=== PATIENT | female | born 1975 | race American Indian/Alaskan Native ===

== ENCOUNTER 2018-05-14 15:26 | Emergency (ER) | payer MEDICARE ==
--- NOTE | 2018-05-14 16:09 | Emergency Department Report ---
Blank Doc - Documentation Documentation: This is a 43-year-old female that presents with left sided chest pain with some SOB with URI symptoms such as frontal sinus pain, rhinnorrhea, cough and congestion. Stated is worse with palpation. This initial assessment diagnostic orders/clinical plan/treatment(s) is/are s ubject to change based on patient's health status, clinical progression and re- assessment by fellow clinical providers in the ED. Further treatment and workup at subsequent clinical providers discretion. Patient/guardians urged not to elope from ED s their condition may be serious if not clinically assessed and managed. Initial orders include: 1-Patient sent to [facility] for further evaluation and treatment 2- EKG 3- Labs 4- CXR
[2018-05-14 16:39] LABS: Basophils % (Auto) 0.5 % (0.0-1.8); Eosinophils # (Auto) 0.4 K/mm3 (0.0-0.4); Eosinophils % (Auto) 4.6 % (0.0-4.3); Hematocrit 40.2 % (30.3-42.9); Hemoglobin 13.4 gm/dl (10.1-14.3); Lymphocytes # (Auto) 2.6 K/mm3 (1.2-5.4); Lymphocytes % (Auto) 32.3 % (13.4-35.0); Mean Corpuscular HGB Conc 33 % (30-34); Mean Corpuscular Volume 83 fl (79-97); Monocytes # (Auto) 0.6 K/mm3 (0.0-0.8); Monocytes % (Auto) 7.8 % (0.0-7.3); Platelet Count 257 K/mm3 (140-440); Red Blood Count 4.84 M/mm3 (3.65-5.03); Red Cell Distribution Width 13.8 % (13.2-15.2)
[2018-05-14 16:45] LABS: INR 0.9 (0.87-1.13)
[2018-05-14 16:52] LABS: Alanine Aminotransferase 8 units/L (7-56); Albumin 4.2 g/dL (3.9-5); BUN/Creatinine Ratio 15; Blood Urea Nitrogen 9 mg/dL (7-17); Calcium 9.4 mg/dL (8.4-10.2); Hemolysis Index 8
--- NOTE | 2018-05-14 17:22 | XRay Report ---
FINAL REPORT PROCEDURE: Chest. TECHNIQUE: PA and lateral views. HISTORY: Chest pain. COMPARISON: No prior studies are available for comparison. FINDINGS: The heart size is normal. There is mild tortuosity of the thoracic aorta. The lungs are clear and wel l expanded. There are no pleural effusions. The soft tissues and regional skeleton are unremarkable. IMPRESSION: No evidence of acute disease.
[2018-05-14 18:42] VITALS: BP 160/109
--- NOTE | 2018-05-14 19:08 | Emergency Department Report ---
- General Chief Complaint: Chest Pain Stated Complaint: BACK/CHEST/HEAD PAIN Time Seen by Provider: 05/14/18 15:57 Source: patient Mode of arrival: Ambulatory Limitations: No Limitations - History of Present Illness Initial Comments: 43-year-old female presents to ED with URI symptoms 1 week. Patient reports fever, headache, cough, chest and back pain with cough, sinus pressure. Patient also reports history of hypertension, however states is very resistant to take medication for it because she does not like to take pills. MD Complaint: fever, cough, nasal congestion, sinus pain -: week(s) (1) Severity: moderate Quality: sharp, aching Consistency: constant Improves With: nothing Worsens With: nothing Associated Symptoms: fever, chills, headache, nasal congestion - Related Data Previous Rx's Medication Instructions Recorded Last Taken Type Amoxicillin/K Clav Tab [Augmentin 1 each PO Q12HR #20 tablet 05/14/18 Unknown Rx 500 MG TAB] Benzonatate [Tessalon Perles] 100 mg PO Q8HR PRN #20 capsule 05/14/18 Unknown Rx Butalb/Acetamin/Caff 50-325-40 1 tab PO Q6HR PRN #10 tab 05/14/18 Unknown Rx [Fioricet] Fluticasone [Flonase] 1 spray NS QDAY #1 bottle 05/14/18 Unknown Rx hydroCHLOROthiazide [HCTZ] 25 mg PO QDAY #30 tablet 05/14/18 Unknown Rx methOCARBAMOL [Robaxin TAB] 500 mg PO Q8HR PRN #20 tablet 05/14/18 Unknown Rx Allergies Allergy/AdvReac Type Severity Reaction Status Date / Time No Known Allergies Allergy Unverified 05/14/18 16:09 ED Review of Systems ROS: Stated complaint: BACK/CHEST/HEAD PAIN Other details as noted in HPI Comment: All other systems reviewed and negative Constitutional: chills, fever ENT: congestion Respiratory: cough Cardiovascular: chest pain (with cough) Gastrointestinal: denies: nausea, vomiting Musculoskeletal: back pain (with cough) Neurological: headache ED Past Medical Hx - Past Medical History Previous Medical History?: No - Surgical History Past Surgical History?: No - Social History Smoking Status: Never Smoker Substance Use Type: Marijuana - Medications Home Medications: Home Medications Medication Instructions Recorded Confirmed Last Taken Type Amoxicillin/K Clav Tab [Augmentin 1 each PO Q12HR #20 tablet 05/14/18 Unknown Rx 500 MG TAB] Benzonatate [Tessalon Perles] 100 mg PO Q8HR PRN #20 capsule 05/14/18 Unknown Rx Butalb/Acetamin/Caff 50-325-40 1 tab PO Q6HR PRN #10 tab 05/14/18 Unknown Rx [Fioricet] Fluticasone [Flonase] 1 spray NS QDAY #1 bottle 05/14/18 Unknown Rx hydroCHLOROthiazide [HCTZ] 25 mg PO QDAY #30 tablet 05/14/18 Unknown Rx methOCARBAMOL [Robaxin TAB] 500 mg PO Q8HR PRN #20 tablet 05/14/18 Unknown Rx ED Physical Exam - General Limitations: No Limitations General appearance: alert, in no apparent distress - Head Head exam: Present: other (sinus tenderness present) - Eye Eye exam: Present: normal appearance, PERRL, EOMI - ENT ENT exam: Present: mucous membranes moist - Neck Neck exam: Present: normal inspection. Absent: meningismus - Respiratory Respiratory exam: Present: normal lung sounds bilaterally. Absent: respiratory distress - Cardiovascular Cardiovascular Exam: Present: regular rate, normal rhythm - GI/Abdominal GI/Abdominal exam: Present: soft. Absent: distended, tenderness - Extremities Exam Extremities exam: Present: normal inspection - Back Exam Back exam: Present: paraspinal tenderness - Neurological Exam Neurological exam: Present: alert, oriented X3 - Psychiatric Psychiatric exam: Present: normal affect, normal mood - Skin Skin exam: Present: warm, dry, intact, normal color ED Course Vital Signs 05/14/18 05/14/18 05/14/18 16:09 18:42 18:43 Temperature 98.2 F 98.1 F Pulse Rate 66 73 Respiratory 20 18 18 Rate Blood Pressure 141/93 Blood Pressure 160/109 [Left] O2 Sat by Pulse 99 100 100 Oximetry ED Medical Decision Making - Lab Data Result diagrams: 05/14/18 16:16 05/14/18 16:16 - EKG Data -: EKG Interpreted by Me EKG shows normal: sinus rhythm, axis, intervals, QRS complexes, ST-T waves Rate: normal - EKG Data Interpretation: no acute changes - Radiology Data Radiology results: report reviewed, image reviewed - Differential Diagnosis sinusitis, costochondritis, pneumonia Critical care attestation.: If time is entered above; I have spent that time in minutes in the direct care of this critically ill patient, excluding procedure time. ED Disposition Clinical Impression: Upper respiratory infection, Sinusitis, Essential hypertension Disposition: TO HOME OR SELFCARE Is pt being admited?: No Condition: Stable Instructions: Sinusitis (ED), Upper Respiratory Infection (ED), Hypertension (ED) Prescriptions: Amoxicillin/K Clav Tab [Augmentin 500 MG TAB] 1 each PO Q12HR #20 tablet Benzonatate [Tessalon Perles] 100 mg PO Q8HR PRN #20 capsule PRN Reason: Cough Butalb/Acetamin/Caff 50-325-40 [Fioricet] 1 tab PO Q6HR PRN #10 tab PRN Reason: Headache Fluticasone [Flonase] 1 spray NS QDAY #1 bottle hydroCHLOROthiazide [HCTZ] 25 mg PO QDAY #30 tablet methOCARBAMOL [Robaxin TAB] 500 mg PO Q8HR PRN #20 tablet PRN Reason: Muscle Spasm Referrals: TARSHA CHAIDEZ [Primary Care Provider] - 3-5 Days [facility] [Provider Group] - 3-5 Days Time of Disposition: 19:11
== END 2018-05-14 19:39 | disposition home or self-care (01) ==
LOC: ED 15:26
DX: J32.9 Chronic sinusitis, unspecified (principal); J06.9 Acute upper respiratory infection, unspecified; I10 Essential (primary) hypertension; F12.10 Cannabis abuse, uncomplicated
CPT/HCPCS: 36415; 71046; 80053; 84484; 85025; 85379; 85610; 85730; 93005; 93010

== ENCOUNTER 2018-07-07 15:59 | Emergency (ER) | payer MEDICARE ==
--- NOTE | 2018-07-07 16:40 | Emergency Department Report ---
Chief Complaint: Urogenital-Female Stated Complaint: STD CHECK/POSS UTI Time Seen by Provider: 07/07/18 16:38 - HPI History of Present Illness: pt states she has dysuria that began two days ago no vaginal discharge no vaginal lesions, blisters states she is having odor states she is sexually active, states she did not use protection STD-gonorrhea 2006 no PMhx no meds (+) marijuana no ETOH no cigarettes MSE screening note: Focused history and physical exam performed. Due to findings the following was ordered: UA, urine preg, wet prep, G/C ED Disposition for MSE Condition: Stable
[2018-07-07 17:29] LABS: HCG Qualitative,Urine Negative (Negative)
[2018-07-07 17:34] LABS: Bacteria,Urine 2+ /HPF (Negative); Bilirubin,Urine NEG (Negative); Blood,Urine SM (Negative); Color,Urine Amber (Yellow); Mucus,Urine 2+ /HPF
--- NOTE | 2018-07-07 20:48 | Emergency Department Report ---
ED Female HPI - General Chief complaint: Urogenital-Female Stated complaint: STD CHECK/POSS UTI Time Seen by Provider: 07/07/18 16:38 Source: patient Mode of arrival: Ambulatory Limitations: No Limitations - History of Present Illness Initial comments: 43-year-old female sexually active since [facility] department complaining of having pelvic discomfort and irritation during sex and having a slight odor but no vaginal discharge. [place]field has come contour with an STD and/or has urinary tract infection, rule out to be evaluated. States she is his just recently coming in to some issues with her partner, which has increased her suspicion for some outside in the 6 sexual behaviors. Reports no fever, chills, sweats, hematuria, flank pain, nausea, vomiting. MD Complaint: pelvic pain, possible STD Location: suprapubic Radiation: non-radiating Severity: mild Quality: burning Consistency: intermittent Improves with: none Worsens with: intercourse, other (veritable with onset) Are you Now?: No - Related Data Previous Rx's Medication Instructions Recorded Last Taken Type Amoxicillin/K Clav Tab [Augmentin 1 each PO Q12HR #20 tablet 05/14/18 Unknown Rx 500 MG TAB] Benzonatate [Tessalon Perles] 100 mg PO Q8HR PRN #20 capsule 05/14/18 Unknown Rx Butalb/Acetamin/Caff 50-325-40 1 tab PO Q6HR PRN #10 tab 05/14/18 Unknown Rx [Fioricet] Fluticasone [Flonase] 1 spray NS QDAY #1 bottle 05/14/18 Unknown Rx hydroCHLOROthiazide [HCTZ] 25 mg PO QDAY #30 tablet 05/14/18 Unknown Rx methOCARBAMOL [Robaxin TAB] 500 mg PO Q8HR PRN #20 tablet 05/14/18 Unknown Rx Nitrofurantoin Monohyd/M-Cryst 100 mg PO BID #20 capsule 07/07/18 Unknown Rx [Macrobid 100 mg Capsule] Phenazopyridine [Pyridium] 200 mg PO BID PRN #10 tab 07/07/18 Unknown Rx metroNIDAZOLE [Flagyl] 500 mg PO BID #14 tab 07/07/18 Unknown Rx Allergies Allergy/AdvReac Type Severity Reaction Status Date / Time No Known Allergies Allergy Verified 07/07/18 16:04 ED Review of Systems ROS: Stated complaint: STD CHECK/POSS UTI Other details as noted in HPI Constitutional: denies: chills, fever Eyes: denies: eye pain, eye discharge, vision change ENT: denies: ear pain, throat pain Respiratory: denies: cough, shortness of breath, wheezing Cardiovascular: denies: chest pain, palpitations Endocrine: no symptoms reported Gastrointestinal: denies: abdominal pain, nausea, diarrhea Genitourinary: denies: urgency, dysuria, discharge Musculoskeletal: denies: back pain, joint swelling, arthralgia Skin: denies: rash, lesions Neurological: denies: headache, weakness, paresthesias Psychiatric: denies: anxiety, depression Hematological/Lymphatic: denies: easy bleeding, easy bruising ED Past Medical Hx - Past Medical History Previous Medical History?: No - Surgical History Past Surgical History?: No - Social History Smoking Status: Never Smoker Substance Use Type: Marijuana - Medications Home Medications: Home Medications Medication Instructions Recorded Confirmed Last Taken Type Amoxicillin/K Clav Tab [Augmentin 1 each PO Q12HR #20 tablet 05/14/18 Unknown Rx 500 MG TAB] Benzonatate [Tessalon Perles] 100 mg PO Q8HR PRN #20 capsule 05/14/18 Unknown Rx Butalb/Acetamin/Caff 50-325-40 1 tab PO Q6HR PRN #10 tab 05/14/18 Unknown Rx [Fioricet] Fluticasone [Flonase] 1 spray NS QDAY #1 bottle 05/14/18 Unknown Rx hydroCHLOROthiazide [HCTZ] 25 mg PO QDAY #30 tablet 05/14/18 Unknown Rx methOCARBAMOL [Robaxin TAB] 500 mg PO Q8HR PRN #20 tablet 05/14/18 Unknown Rx Nitrofurantoin Monohyd/M-Cryst 100 mg PO BID #20 capsule 07/07/18 Unknown Rx [Macrobid 100 mg Capsule] Phenazopyridine [Pyridium] 200 mg PO BID PRN #10 tab 07/07/18 Unknown Rx metroNIDAZOLE [Flagyl] 500 mg PO BID #14 tab 07/07/18 Unknown Rx ED Physical Exam - General Limitations: No Limitations General appearance: alert, in no apparent distress - Head Head exam: Present: atraumatic, normocephalic - Eye Eye exam: Present: normal appearance, PERRL Pupils: Present: normal accommodation - ENT ENT exam: Present: mucous membranes moist - Neck Neck exam: Present: normal inspection - Respiratory Respiratory exam: Present: normal lung sounds bilaterally. Absent: respiratory distress - Cardiovascular Cardiovascular Exam: Present: regular rate, normal rhythm. Absent: systolic murmur, diastolic murmur, rubs, gallop - GI/Abdominal GI/Abdominal exam: Present: soft, normal bowel sounds. Absent: tenderness, guarding - External exam: Present: normal external exam Speculum exam: Present: vaginal discharge Bi-manual exam: Present: normal bi-manual exam - Extremities Exam Extremities exam: Present: normal inspection - Back Exam Back exam: Present: normal inspection - Neurological Exam Neurological exam: Present: alert, oriented X3 - Psychiatric Psychiatric exam: Present: normal affect, normal mood - Skin Skin exam: Present: warm, dry, intact, normal color. Absent: rash ED Course Vital Signs 07/07/18 16:39 Temperature 98.4 F Pulse Rate 91 H Respiratory 18 Rate Blood Pressure 141/86 O2 Sat by Pulse 100 Oximetry Critical care attestation.: If time is entered above; I have spent that time in minutes in the direct care of this critically ill patient, excluding procedure time. ED Disposition Clinical Impression: UTI (urinary tract infection), Bacterial vaginal infection Disposition: DC-01 TO HOME OR SELFCARE Is pt being admited?: No Does the pt Need Aspirin: No Condition: Stable Instructions: Bacterial Vaginosis (ED), Phenazopyridine (By mouth), Urinary Tract Infection in Women (ED), Dysuria (ED) Referrals: TARSHA CHAIDEZ MD [Primary Care Provider] - 3-5 Days Forms: STI Treatment and Prevention
[2018-07-08 19:22] VITALS: BP 141/86
== END 2018-07-07 21:00 | disposition home or self-care (01) ==
LOC: ED 15:59
DX: N39.0 Urinary tract infection, site not specified (principal); N76.0 Acute vaginitis; B96.89 Other specified bacterial agents as the cause of diseases classified elsewhere; F12.10 Cannabis abuse, uncomplicated
CPT/HCPCS: 81001; 81025; 87210; 87591; 99284